=== PATIENT | male | born 1995 | race Caucasian/White ===

== ENCOUNTER 2025-01-04 08:58 | Emergency (ER) | payer MEDICAID ==
[~2025-01-04] VITALS: Ht 172.7 cm; Wt 95.5 kg
[2025-01-04] MEDS ORDERED: SERT-439 PO (09:13)
[2025-01-04] MEDS ORDERED: QUET50TA24 PO (09:13)
[2025-01-04] MEDS ORDERED: LITH300T4 PO (09:13)
[2025-01-04 09:23] LABS: COVID AG,FIA SOURCE NASAL SWAB
[2025-01-04 09:45] LABS: INFLUENZA TYPE A NEGATIVE FOR TYPE A (NEGATIVE); INFLUENZA TYPE B NEGATIVE FOR TYPE B (NEGATIVE); SARS-COV2 (COVID) ANTIGEN,FIA Negative (Negative)
[2025-01-04] MEDS: NEOMYCIN/POLYMYXIN B/HYDROCORT 10 ML OTIC SUSPENSION AS ONE (11:19)
[2025-01-04] MEDS: DIPHENOXYLATE/ATROP 2.5-0.025 MG TABLET PO ONE (11:34)
[2025-01-04 11:53] VITALS: BP 144/97; PULSE 52; RESP 18; TEMP 98.5; O2SAT 98
== END 2025-01-04 11:57 | disposition home or self-care (01) ==
LOC: EMS 09:01
DX: H60.92 Unspecified otitis externa, left ear (principal); F32.A Depression, unspecified; F17.210 Nicotine dependence, cigarettes, uncomplicated; F15.90 Other stimulant use, unspecified, uncomplicated; Z79.899 Other long term (current) drug therapy; Z20.822 Contact with and (suspected) exposure to COVID-19
CPT/HCPCS: 87804; 99283

== ENCOUNTER 2025-02-10 10:34 | Emergency (ER) | payer MEDICAID ==
[~2025-02-10] VITALS: Ht 167.6 cm; Wt 95.5 kg
[~2025-02-10 10:34] MED LIST: LITH300T4 PO; QUET50TA24 PO; SERT-439 PO
[2025-02-10 10:51] VITALS: BP 132/72; PULSE 69; RESP 19; TEMP 97.7; O2SAT 99
[2025-02-10] MEDS: SULFAMETHOX/TRIMETH DS 800-160 MG/TABLET PO ONE (12:38)
[2025-02-10] MEDS: CEPHALEXIN MONOHYDRATE 500 MG CAPSULE PO ONE (12:38)
[2025-02-10] MEDS ORDERED: CEPH-558 PO (12:40)
[2025-02-10] MEDS ORDERED: SULF-261 PO (12:40)
== END 2025-02-10 12:51 | disposition home or self-care (01) ==
LOC: EMS 10:36
DX: H00.014 Hordeolum externum left upper eyelid (principal); F32.A Depression, unspecified; F17.210 Nicotine dependence, cigarettes, uncomplicated; Z79.899 Other long term (current) drug therapy
CPT/HCPCS: 99283